=== PATIENT | male | born 1990 | race Caucasian/White ===

== ENCOUNTER 2017-02-21 08:56 | Emergency (ER) | payer OTHER ==
[2017-02-21] MEDS ORDERED: ERYTHROMYCIN OPHTH OINT 1 GM TUBE ONE (11:38)
--- NOTE | 2017-02-21 11:40 | ED Physician Documentation ---
PD HPI OPHTHO - Stated complaint Stated Complaint: LEFT EYE IRRITATION - Chief complaint Chief Complaint: Heent - History obtained from History obtained from: Patient - History of Present Illness Timing - onset: Last night Timing - details: Still present Location: Left Associated symptoms: Redness, Tearing Similar symptoms before: Has not had sx before - Additional information Additional information: The patient is an active [employer] [place] male who presents with redness in his left eye. His symptoms started last night and persist today. He denies any traumatic injury. He's had no change in his visual acuity. He does not wear corrective lenses. He has no history of similar symptoms in the past. He is 2 years status post PRK. Review of Systems Constitutional: denies: Fever Eyes: reports: Discharge, Irritation. denies: Decreased vision, Photophobia Ears: denies: Tinnitus/ringing Nose: denies: Congestion Throat: denies: Sore throat Respiratory: denies: Cough GI: denies: Nausea, Vomiting Neurologic: denies: Headache PD PAST MEDICAL HISTORY - Past Medical History Past Medical History: No Cardiovascular: None Respiratory: None Neuro: None Endocrine/Autoimmune: None - Past Surgical History Past Surgical History: No - Present Medications Home Medications: Ambulatory Orders Medication Instructions Recorded Confirmed No Known Home Medications [No 02/21/17 02/21/17 Known Home Medications] - Allergies Allergies/Adverse Reactions: Allergies Allergy/AdvReac Type Severity Reaction Status Date / Time No Known Drug Allergies Allergy Verified 02/21/17 09:34 - Social History Does the pt smoke?: Yes Smoking Status: Current every day smoker Does the pt drink ETOH?: Yes Does the pt have substance abuse?: No - Immunizations Immunizations are current?: Yes - POLST Patient has POLST: No PD ED PE NORMAL - Vitals Vital signs reviewed: Yes (normal) - General General: Alert and oriented X 3, Well developed/nourished - HEENT HEENT: Atraumatic, PERRL, EOMI, Ears normal, Pharynx benign, Other ( Conjunctival erythema of the left eye.) - Neck Neck: Supple, no meningeal sign, No adenopathy - Respiratory Respiratory: No respiratory distress - Derm Derm: No rash - Neuro Neuro: Alert and oriented X 3, Normal speech PD ED PE EXPANDED - Eyes Eyes: Visual acuity - see nn (20/20 in each eye.), PERRL, Normal accommodation, EOMI, Left eye, Injected conj/sclera (left eye), Anterior chambers clear, Normal fundi. No: Exudate, Conj/sclera FB, Corneal FB, Corneal abrasion, Corneal ulcer, Fluorescein uptake Results - Vitals Vitals: Oxygen O2 Source Room air PD MEDICAL DECISION MAKING - ED course Complexity details: considered differential, d/w patient ED course: The patient's presentation is most consistent with conjunctivitis left eye. Fluorescein stain and blue light exam reveal no fluorescein uptake, no foreign body, and no corneal abrasion. Treatment in the emergency department included administration of erythromycin ophthalmic ointment in the left eye. The remainder of the tube of antibiotic ointment was dispensed for the patient's use. I discussed with him the expected course of illness, ophthalmic antibiotic ointment treatment and outpatient follow-up, as well as potentially worrisome signs or symptoms that should prompt reevaluation in the emergency department. Departure - Departure Disposition: 01 Home, Self Care Clinical Impression: Conjunctivitis Qualifiers: Conjunctivitis type: acute Acute conjunctivitis type: unspecified Laterality: left Qualified Code(s): H10.32 - Unspecified acute conjunctivitis, left eye Condition: Stable Instructions: ED Conjunctivitis Nonspecific Follow-Up: JENNIFER Dao [Provider Group] Comments: Apply erythromycin ophthalmic ointment in your left eye 4 times daily for the next 2 days. Follow up with your primary physician early next week. Call to schedule appointment. Return to the emergency department if you develop increasing redness, increasing pain in your eye, or decreasing visual acuity. Discharge Date/Time: 02/21/17 11:42
[2017-02-21 11:48] VITALS: BP 129/76
== END 2017-02-21 11:42 | disposition home or self-care (01) ==
LOC: ED 08:56
DX: H10.32 Unspecified acute conjunctivitis, left eye (principal); F17.200 Nicotine dependence, unspecified, uncomplicated
CPT/HCPCS: 99282; 99283; J3490